=== PATIENT | female | born 1965 | race Caucasian/White ===

== ENCOUNTER 2017-04-07 15:58 | Outpatient (CLI) | payer OTHER ==
--- NOTE | 2017-04-07 22:35 | Diagnostic Imaging Report ---
NATHALY VINES [facility] [id number] [facility].[address] [id number] Report Submission Date: Apr 07, 2017 4:32:12 PM CDT Patient Study Name: ARNULFO HIGUERA Date: Apr 07, 2017 4:12:53 PM CDT Modality Type: CR Gender: F Description: SHOULDER : 67 Institution: [facility] Physician: NATHALY VINES Examination: Plain film shoulder History: Discomfort Comparison exams: None provided Findings: 3 views of the shoulder demonstrate normal cortical margins. No evidence for fracture or dislocation. Acromioclavicular joint degenerative changes. No soft tissue abnormality Impression: Acromioclavicular joint degenerative changes. No acute osseous process. Electronically signed on Apr 07, 2017 4:32:12 PM CDT by: Anthony MARTINEZ
== END 2017-04-07 16:00 ==
LOC: RAD 15:58
PROVIDERS: ATTEND Family Medicine
DX: M25.511 Pain in right shoulder (principal)
CPT/HCPCS: 73030